=== PATIENT | female | born 1930 | race Asian ===

== ENCOUNTER → 2017-11-06 | Outpatient (CLI) | payer OTHER, BC | LOC: BRMIMAGING 11:50 | DX: S92.011 Displaced fracture of body of right calcaneus (principal) | CPT/HCPCS: 73650-PO ==

== ENCOUNTER → 2018-03-31 | Outpatient (CLI) | payer OTHER, BC | LOC: BRMIMAGING 11:20 | DX: S92.012 Displaced fracture of body of left calcaneus (principal) | CPT/HCPCS: 73650-PO ==